=== PATIENT | male | born 1940 | race African-American/Black ===

== ENCOUNTER 2017-10-31 08:25 | Emergency (ER) | payer MEDICARE ==
[~2017-10-31] VITALS: Ht 170.2 cm; Wt 82.0 kg
[2017-10-31] MEDS ORDERED: ACETAMINOPHEN 325MG TABLET PO ONE (11:30)
[2017-10-31 14:04] VITALS: BP 148/86
== END 2017-10-31 14:05 | disposition home or self-care (01) ==
LOC: ER 10:58
DX: M25.512 Pain in left shoulder (principal); R10.2 Pelvic and perineal pain; I10 Essential (primary) hypertension; Z98.61 Coronary angioplasty status; W01.0XXA Fall on same level from slipping, tripping and stumbling without subsequent striking against object, initial encounter; Y93.89 Activity, other specified; Y92.512 Supermarket, store or market as the place of occurrence of the external cause
CPT/HCPCS: 72170; 73030; 99284

== ENCOUNTER 2020-08-31 09:45 | Inpatient (IN) | payer MEDICARE, OTHER ==
[~2020-08-31] VITALS: Ht 170.2 cm; Wt 71.7 kg
[2020-08-31] MEDS ORDERED: DICYCLOMINE 10 MG/5 ML ORAL SYR PO STA (10:27)
[2020-08-31] MEDS ORDERED: MAGNESIUM/ALUMINUM HYDROXIDE/SIMETHICONE 30ML UDC PO STA (10:27)
[2020-08-31] MEDS ORDERED: SODIUM CHLORIDE 0.9% 1,000 ML IV ONE (10:30)
[2020-08-31 10:47] LABS: BASOPHILS % 0.3 % (0.0-2.0); EOSINOPHILS % 0.3 % (0.0-5.0); HEMATOCRIT. 39.1 % (42.0-52.0); HEMOGLOBIN. 13.9 g/dL (14.0-18.0); LYMPHOCYTES % 13.3 % (20.0-50.0); MEAN CORPUSCULAR HEMOGLOBIN 35.6 pg (28.0-32.0); MEAN CORPUSCULAR VOLUME 100.3 fL (80.0-94.0); MEAN PLATELET VOLUME 8.4 fl (7.4-10.4); MONOCYTES % 14.8 % (2.0-8.0); NEUTROPHILS % 71.3 % (40.0-76.0); PLATELET 209 x1000/uL (130-400); RED BLOOD CELL COUNT 3.89 mill/uL (4.7-6.1); RED CELL DISTRIBUTION WIDTH 14.6 % (11.6-14.6)
[2020-08-31 10:51] LABS: CHLORIDE 111 mEq/L (98-107)
[2020-08-31] MEDS ORDERED: KETOROLAC 15MG/ML VIAL IV ONE (13:15)
[2020-08-31 13:46] LABS: CLARITY URINE CLEAR (CLEAR); COLOR URINE YELLOW (YELLOW); KETONES URINE NEGATIVE (NEGATIVE); LEUKOCYTE ESTERASE URINE NEGATIVE (NEGATIVE); NITRITE URINE NEGATIVE (NEGATIVE); OCCULT BLOOD URINE NEGATIVE (NEGATIVE); PROTEIN URINE NEGATIVE (NEGATIVE); SPECIFIC GRAVITY URINE 1.016 (1.005-1.030)
[2020-08-31 14:30] VITALS: BP 131/65
[2020-08-31] MEDS ORDERED: LATONOPROST (18:59)
[2020-08-31] MEDS ORDERED: POTA-9 PO (18:59)
[2020-08-31] MEDS ORDERED: RIBO100T3 PO (18:59)
[2020-08-31] MEDS ORDERED: LOSARTAN (18:59)
[2020-08-31] MEDS ORDERED: AMLODIPINE (18:59)
[2020-08-31] MEDS ORDERED: METO200T48 PO (18:59)
[2020-08-31] MEDS ORDERED: ASPI-1497 PO (18:59)
[2020-08-31] MEDS ORDERED: ATOR-2 PO (19:01)
[2020-08-31] MEDS ORDERED: VITA1TAB20 PO (19:01)
[2020-08-31 20:00] VITALS: BP 164/88
[2020-08-31] MEDS ORDERED: PIPERACILLIN/TAZOBACTAM 3.375 G in DEXT 5% WATER 100 ML IV SCH (20:00)
[2020-08-31] MEDS ORDERED: ENALAPRIL 2.5MG/2ML VIAL 2ML IV PRN (20:30)
[2020-08-31] MEDS ORDERED: ENALAPRIL 1.25MG/ML VIAL 1ML IV PRN (21:00)
[2020-08-31] MEDS ORDERED: *PATIENT'S OWN MEDICATION STORAGE XX SCH (21:15)
[2020-08-31] MEDS ORDERED: ENALAPRIL 1.25 MG in DEXTROSE 5% WATER 50 ML IV PRN (21:15)
[2020-08-31] MEDS ORDERED: LEVOFLOXACIN 500MG PREMIX 100 ML IV NR (22:00)
[2020-08-31] MEDS: DEXT 5%/0.45% NACL KCL 20MEQ/L 1,000 ML IV SCH (22:34)
[2020-09-01] VITALS: BP 136/71
[2020-09-01 04:00] VITALS: BP 139/75
[2020-09-01 06:57] LABS: HEMATOCRIT. 37.6 % (42.0-52.0); HEMOGLOBIN. 13.2 g/dL (14.0-18.0); MEAN CORPUSCULAR HEMOGLOBIN 34.9 pg (28.0-32.0); MEAN CORPUSCULAR VOLUME 99.7 fL (80.0-94.0); MEAN PLATELET VOLUME 8.7 fl (7.4-10.4); PLATELET 185 x1000/uL (130-400); RED BLOOD CELL COUNT 3.77 mill/uL (4.7-6.1); RED CELL DISTRIBUTION WIDTH 14.3 % (11.6-14.6)
[2020-09-01 07:35] LABS: CHLORIDE 111 mEq/L (98-107)
[2020-09-01] MEDS: DEXT 5%/0.45% NACL KCL 20MEQ/L 1,000 ML IV SCH ×3 (07:38→21:34)
[2020-09-01 08:00] VITALS: BP 135/65
[2020-09-01 12:00] VITALS: BP 154/72
[2020-09-01] MEDS ORDERED: PANTOPRAZOLE SODIUM 40 MG/VIAL IV SCH (13:00)
[2020-09-01] MEDS ORDERED: ENALAPRIL 1.25MG/ML VIAL 1ML IV PRN (14:15)
[2020-09-01 16:00] VITALS: BP 149/72
[2020-09-01 17:06] LABS: PLATELET ESTIMATE NORMAL
[2020-09-01] MEDS ORDERED: HEPARIN 5000 UNITS/ML VIAL SUBCUT SCH (19:00)
[2020-09-01 20:00] VITALS: BP 154/84
[2020-09-01 20:22] LABS: HEMATOCRIT 37.6 % (42.0-52.0); HEMOGLOBIN 12.9 g/dL (14.0-18.0)
[2020-09-01] MEDS: PANTOPRAZOLE SODIUM 40 MG/VIAL IV SCH (21:27)
[2020-09-01] MEDS ORDERED: LEVOFLOXACIN 250MG PREMIX 50 ML IV SCH (22:00)
[2020-09-01] MEDS ORDERED: LEVOFLOXACIN 500MG PREMIX 100 ML IV SCH (23:00)
[2020-09-01] MEDS: LEVOFLOXACIN 250MG PREMIX 50 ML IV SCH (23:03)
[2020-09-02] VITALS: BP 149/61
[2020-09-02 04:00] VITALS: BP 123/72
[2020-09-02 06:00] LABS: HEMATOCRIT. 35.6 % (42.0-52.0); HEMOGLOBIN. 12.6 g/dL (14.0-18.0); MEAN CORPUSCULAR HEMOGLOBIN 35.7 pg (28.0-32.0); MEAN PLATELET VOLUME 8.8 fl (7.4-10.4); PLATELET 160 x1000/uL (130-400); RED BLOOD CELL COUNT 3.52 mill/uL (4.7-6.1); RED CELL DISTRIBUTION WIDTH 14.7 % (11.6-14.6)
[2020-09-02 06:08] LABS: INR 1.1; PARTIAL THROMBOPLASTIN TIME 25.9 sec (23.4-31.0); PROTHROMBIN TIME 11.9 sec (9.6-11.0)
[2020-09-02 06:08] LABS: CHLORIDE 112 mEq/L (98-107)
[2020-09-02 08:00] VITALS: BP 147/71
[2020-09-02] MEDS: PANTOPRAZOLE SODIUM 40 MG/VIAL IV SCH ×2 (09:10→20:36)
[2020-09-02 12:00] VITALS: BP 151/69
[2020-09-02] MEDS ORDERED: FENTANYL CITRATE/PF 50MCG/ML 2ML VIAL ONE (13:02)
[2020-09-02] MEDS ORDERED: MIDAZOLAM HCL 5 MG/5 ML VIAL ONE (13:02)
[2020-09-02] MEDS ORDERED: MIDAZOLAM HCL 5 MG/5 ML VIAL IV PRN (13:05)
[2020-09-02] MEDS ORDERED: FENTANYL CITRATE/PF 50MCG/ML 2ML VIAL IV PRN (13:08)
[2020-09-02] MEDS: DEXT 5%/0.45% NACL KCL 20MEQ/L 1,000 ML IV SCH ×2 (14:23→20:36)
[2020-09-02 15:27] LABS: PLATELET ESTIMATE NORMAL
[2020-09-02 16:00] VITALS: BP 142/99
[2020-09-02] MEDS ORDERED: DILTIAZEM HCL 5MG/ML 5ML VIAL IV NR (17:33)
[2020-09-02 20:00] VITALS: BP_SYST 118; BP_SYST 124; BP_DIAS 48; BP_DIAS 58
[2020-09-02] MEDS: METOPROLOL TARTRATE 25MG TABLET PO SCH (20:36)
[2020-09-02] MEDS: LEVOFLOXACIN 250MG PREMIX 50 ML IV SCH (20:44)
[2020-09-02] MEDS ORDERED: METOPROLOL TARTRATE 25MG TABLET PO SCH ×3 (21:00)
[2020-09-03 00:01] VITALS: BP 121/59
[2020-09-03 04:00] VITALS: BP 145/95
[2020-09-03 08:12] VITALS: BP 142/53
[2020-09-03] MEDS: DEXT 5%/0.45% NACL KCL 20MEQ/L 1,000 ML IV SCH ×2 (09:57→16:58)
[2020-09-03] MEDS: PANTOPRAZOLE SODIUM 40 MG/VIAL IV SCH ×2 (10:24→21:22)
[2020-09-03] MEDS: METOPROLOL TARTRATE 25MG TABLET PO SCH ×2 (10:24→21:24)
[2020-09-03 12:07] VITALS: BP 159/65
[2020-09-03 16:11] VITALS: BP 165/94
[2020-09-03] MEDS: ASPIRIN 81MG EC TABLET PO SCH (16:14)
[2020-09-03] MEDS: AMIODARONE HCL 200 MG TABLET PO SCH (16:58)
[2020-09-03 20:00] VITALS: BP 155/66
[2020-09-03 20:05] LABS: CHLORIDE 111 mEq/L (98-107)
[2020-09-03 20:06] LABS: HEMATOCRIT. 36.9 % (42.0-52.0); MEAN CORPUSCULAR HEMOGLOBIN 35.2 pg (28.0-32.0); MEAN CORPUSCULAR VOLUME 99.8 fL (80.0-94.0); MEAN PLATELET VOLUME 8.5 fl (7.4-10.4); PLATELET 167 x1000/uL (130-400); RED BLOOD CELL COUNT 3.69 mill/uL (4.7-6.1); RED CELL DISTRIBUTION WIDTH 13.9 % (11.6-14.6)
[2020-09-03 20:20] LABS: T4 FREE 1.31 ng/dL (0.76-1.46)
[2020-09-03 21:50] LABS: PLATELET ESTIMATE NORMAL
[2020-09-03] MEDS: LEVOFLOXACIN 250MG PREMIX 50 ML IV SCH (23:02)
[2020-09-04] VITALS: BP 134/72
[2020-09-04] MEDS: DEXT 5%/0.45% NACL KCL 20MEQ/L 1,000 ML IV SCH ×2 (03:26→13:27)
[2020-09-04 04:00] VITALS: BP 138/75
[2020-09-04 07:55] VITALS: BP 144/78
[2020-09-04] MEDS: METOPROLOL TARTRATE 25MG TABLET PO SCH ×2 (08:47→08:55)
[2020-09-04] MEDS: ASPIRIN 81MG EC TABLET PO SCH (08:48)
[2020-09-04] MEDS: AMIODARONE HCL 200 MG TABLET PO SCH ×2 (08:50→08:55)
[2020-09-04] MEDS: PANTOPRAZOLE SODIUM 40 MG/VIAL IV SCH ×2 (08:51→21:02)
[2020-09-04 11:52] VITALS: BP 148/90
[2020-09-04] MEDS ORDERED: POTASSIUM CHLORIDE 20MEQ TABLET SR PO NR (12:02)
[2020-09-04 12:58] LABS: HEMATOCRIT. 35.9 % (42.0-52.0); HEMOGLOBIN. 12.5 g/dL (14.0-18.0); MEAN CORPUSCULAR HEMOGLOBIN 34.6 pg (28.0-32.0); MEAN CORPUSCULAR VOLUME 99.5 fL (80.0-94.0); MEAN PLATELET VOLUME 8.3 fl (7.4-10.4); PLATELET 159 x1000/uL (130-400); RED BLOOD CELL COUNT 3.61 mill/uL (4.7-6.1); RED CELL DISTRIBUTION WIDTH 13.9 % (11.6-14.6)
[2020-09-04 13:07] LABS: CHLORIDE 112 mEq/L (98-107)
[2020-09-04] MEDS: LEVOFLOXACIN 250MG TABLET PO SCH (15:05)
[2020-09-04 16:16] VITALS: BP 166/81
[2020-09-04 16:55] LABS: PLATELET ESTIMATE NORMAL
[2020-09-04 20:00] VITALS: BP 148/66
[2020-09-04] MEDS: METOPROLOL TARTRATE 50MG TABLET PO SCH (21:02)
[2020-09-05 00:50] VITALS: BP 163/64
[2020-09-05 04:00] VITALS: BP 131/75
[2020-09-05 08:00] VITALS: BP 146/69
[2020-09-05] MEDS: AMIODARONE HCL 200 MG TABLET PO SCH (08:55)
[2020-09-05] MEDS: PANTOPRAZOLE SODIUM 40 MG/VIAL IV SCH ×2 (08:55→21:34)
[2020-09-05] MEDS: ASPIRIN 81MG EC TABLET PO SCH (08:55)
[2020-09-05] MEDS: METOPROLOL TARTRATE 50MG TABLET PO SCH ×2 (08:55→21:34)
[2020-09-05] MEDS: DEXT 5%/0.45% NACL KCL 20MEQ/L 1,000 ML IV SCH ×3 (08:56→21:34)
[2020-09-05 11:41] LABS: T4 FREE 1.24 ng/dL (0.76-1.46)
[2020-09-05] MEDS: LEVOFLOXACIN 250MG TABLET PO SCH (11:49)
[2020-09-05 14:53] VITALS: BP 137/71
[2020-09-05 16:00] VITALS: BP 137/83
[2020-09-05 20:00] VITALS: BP 147/77
[2020-09-05 20:32] LABS: CREATINE KINASE 69 IU/L (39-308)
[2020-09-05 20:33] LABS: CREATINE KINASE MB FRACTION < 1.0 ng/mL (0.5-3.6)
[2020-09-06] VITALS: BP 146/72
[2020-09-06 01:46] LABS: CREATINE KINASE 65 IU/L (39-308)
[2020-09-06 01:48] LABS: CREATINE KINASE MB FRACTION < 1.0 ng/mL (0.5-3.6)
[2020-09-06 04:00] VITALS: BP 146/83
[2020-09-06] MEDS: DEXT 5%/0.45% NACL KCL 20MEQ/L 1,000 ML IV SCH (05:02)
[2020-09-06 07:21] LABS: CREATINE KINASE 57 IU/L (39-308)
[2020-09-06 07:22] LABS: CREATINE KINASE MB FRACTION < 1.0 ng/mL (0.5-3.6)
[2020-09-06 08:00] VITALS: BP 125/65
[2020-09-06] MEDS: ASPIRIN 81MG EC TABLET PO SCH (09:06)
[2020-09-06] MEDS: AMIODARONE HCL 200 MG TABLET PO SCH (09:06)
[2020-09-06] MEDS: PANTOPRAZOLE SODIUM 40 MG/VIAL IV SCH (09:07)
[2020-09-06] MEDS: METOPROLOL TARTRATE 50MG TABLET PO SCH (09:07)
[2020-09-06] MEDS: LEVOFLOXACIN 250MG TABLET PO SCH (10:16)
[2020-09-06 12:00] VITALS: BP 133/55
[2020-09-06 16:00] VITALS: BP 126/61
[2020-09-06 18:15] VITALS: BP 124/66
[2020-09-06] MEDS ORDERED: FAMOTIDINE 20MG/2ML VIAL IV SCH (21:00)
== END 2020-09-06 19:30 | disposition home or self-care (01) | DRG 381 ==
LOC: ER 09:57 → 6EST 13:55 → ENRESERV 14:57 → 6WST 09-01 13:54
PROVIDERS: ADMIT Internal Medicine; ATTEND Internal Medicine
PROC: 0DB78ZX Excision of Stomach, Pylorus, Via Natural or Artificial Opening Endoscopic, Diagnostic (ICD-10-PCS; principal; 2020-09-02)
DX: K22.11 Ulcer of esophagus with bleeding (principal); I47.2 Ventricular tachycardia; K31.811 Angiodysplasia of stomach and duodenum with bleeding; D50.9 Iron deficiency anemia, unspecified; I10 Essential (primary) hypertension; E78.5 Hyperlipidemia, unspecified; K80.20 Calculus of gallbladder without cholecystitis without obstruction; I25.10 Atherosclerotic heart disease of native coronary artery without angina pectoris; M19.90 Unspecified osteoarthritis, unspecified site; Z20.822 Contact with and (suspected) exposure to COVID-19; M16.0 Bilateral primary osteoarthritis of hip; I49.3 Ventricular premature depolarization; N20.0 Calculus of kidney; M47.816 Spondylosis without myelopathy or radiculopathy, lumbar region; I48.0 Paroxysmal atrial fibrillation; Z95.1 Presence of aortocoronary bypass graft; Z79.82 Long term (current) use of aspirin; Z85.048 Personal history of other malignant neoplasm of rectum, rectosigmoid junction, and anus; Z85.038 Personal history of other malignant neoplasm of large intestine; K25.4 Chronic or unspecified gastric ulcer with hemorrhage
CPT/HCPCS: 36415; 71045; 74018; 74176; 80048; 80053; 80061; 81003; 82378; 82550; 82553; 82607; 82746; 83036; 83735; 83880; 84439; 84443; 84484; 85014; 85018; 85025; 85379; 87426; 88305; 88312; 88313; 93005; 93306; 99285; C9113; J1885; J1956; J2250; J2543; J3010; J3490; J7030; J7060